=== PATIENT | female | born 1965 | race Two or more races ===

== ENCOUNTER 2024-02-20 20:57 | Emergency (ER) | payer OTHER ==
[~2024-02-20] VITALS: Ht 154.9 cm; Wt 98.9 kg
[2024-02-20 21:13] VITALS: BP 109/53; PULSE 68; RESP 18; TEMP 98.1; O2SAT 97
[2024-02-20 21:30] VITALS: BP 109/53; PULSE 68; RESP 18; TEMP 98.1; O2SAT 97
[2024-02-20 22:34] LABS: FLU A ANTIGEN negative (NEGATIVE); FLU B ANTIGEN NEGATIVE (NEGATIVE)
[2024-02-20] MEDS ORDERED: BENZ-300 PO (23:22)
[2024-02-20] MEDS ORDERED: ACET-10509 PO (23:22)
[2024-02-20] MEDS ORDERED: AMOX1TAB8 PO (23:22)
[2024-02-20] MEDS ORDERED: IBUP-2213 PO (23:22)
[2024-02-20] MEDS: AMOXIL/CLAVULANATE 875/125 MG 1 TAB PO ONE (23:34)
[2024-02-20] MEDS: IBUPROFEN 600 MG TAB PO ONE (23:35)
== END 2024-02-21 00:03 | disposition home or self-care (01) ==
LOC: MED 20:57
DX: J02.0 Streptococcal pharyngitis (principal); Z20.822 Contact with and (suspected) exposure to COVID-19; I11.9 Hypertensive heart disease without heart failure; Z79.899 Other long term (current) drug therapy
CPT/HCPCS: 99284

== ENCOUNTER 2024-03-27 15:26 | Emergency (ER) | payer OTHER ==
[~2024-03-27] VITALS: Ht 142.2 cm; Wt 99.1 kg
[~2024-03-27 15:26] MED LIST: ACET-10509 PO; AMOX1TAB8 PO; BENZ-300 PO; IBUP-2213 PO
[2024-03-27 15:33] VITALS: BP 135/69; PULSE 64; RESP 14; TEMP 98.2; O2SAT 99
== END 2024-03-27 16:40 | disposition home or self-care (01) ==
LOC: MED 15:26
DX: I83.892 Varicose veins of left lower extremity with other complications (principal); I10 Essential (primary) hypertension; Z79.1 Long term (current) use of non-steroidal anti-inflammatories (NSAID); Z79.2 Long term (current) use of antibiotics; Z79.899 Other long term (current) drug therapy
CPT/HCPCS: 12001; 99282